=== PATIENT | male | born 1970 | race Caucasian/White ===

== ENCOUNTER 2017-03-25 15:45 | Outpatient (RCR) | payer OTHER | END 2017-03-29 08:50 | disposition home or self-care (01) | LOC: MKS.ESL.PT 15:45 | DX: R51 Headache (principal) ==

== ENCOUNTER 2018-04-19 16:15 | Outpatient (RCR) | payer OTHER | END 2018-05-31 | disposition home or self-care (01) | LOC: MKS.ESL.PT | DX: M50.10 Cervical disc disorder with radiculopathy, unspecified cervical region (principal); R51 Headache | CPT/HCPCS: G8990-GP; G8991-GP ==